=== PATIENT | female | born 1950 | race Caucasian/White ===

== ENCOUNTER → 2018-04-01 10:01 | Outpatient (CLI) | payer MEDICARE, OTHER, SELFPAY ==
[2018-04-01 11:08] LABS: Cholesterol 208 mg/dL (140-199); Glucose 98 mg/dL (80-110); HDL Cholesterol 49 mg/dL (40-60); LDL Cholesterol Calculated 136 mg/dL (<100); Triglycerides 113 mg/dL (35-150)
[2018-04-01 11:21] LABS: Vitamin D 25 Hydroxy (D3) 28.1 ng/mL (30.0-100.0)
[2018-04-01 11:22] LABS: Free T3, Triiodothyronine Free 5.22 pg/mL (2.77-5.27); Free T4, Direct Thyroxine 1.36 ng/dL (0.78-2.19)
[2018-04-01 11:35] LABS: Cancer Antigen 125 < 6 U/mL (0-35)
[2018-04-01 11:36] LABS: Thyroid Stimulating Hormone 2.12 uIU/mL (0.47-4.68)
== END ==
PROVIDERS: Family Provider Family Medicine; PCP Family Medicine; Visit Provider Family Medicine
DX: E03.9 Hypothyroidism, unspecified (principal); E78.5 Hyperlipidemia, unspecified; M85.80 Other specified disorders of bone density and structure, unspecified site; Z85.43 Personal history of malignant neoplasm of ovary
CPT/HCPCS: 36415; 80061; 82306; 82947; 84439; 84443; 84481; 86304

== ENCOUNTER → 2018-08-12 10:56 | Outpatient (CLI) | payer MEDICARE, OTHER, SELFPAY ==
--- NOTE | 2018-08-12 | DI.MG.S_ITS ---
BILATERAL DIGITAL SCREENING MAMMOGRAM 3D/2D WITH CAD: 08/12/2018 CLINICAL: Routine screening. Family history of breast cancer. Comparison is made to exams dated: 03/06/2017 mammogram - [facility], 07/02/2015 mammogram, and 03/18/2014 mammogram - [facility]. The tissue of both breasts is heterogeneously dense. This may lower the sensitivity of mammography. Current study was also evaluated with a Computer Aided Detection (CAD) system. No significant masses, calcifications, or other findings are seen in either breast. There has been no significant interval change. IMPRESSION: NEGATIVE There is no mammographic evidence of malignancy. A 1 year screening mammogram is recommended. This exam was interpreted at Station ID: [id number]. NOTE: For mammograms, a report in lay terms will be sent to the patient. Approximately 15% of breast malignancies will not be visualized mammographically. In the management of a palpable breast mass, a negative mammogram must not discourage biopsy of a clinically suspicious lesion. Electronically Signed By: Jerry scherer/evangelina:08/12/2018 12:04:55 letter sent: Normal Exam ACR BI-RADS Category 1: Negative 3341F
== END ==
PROVIDERS: Family Provider Family Medicine; PCP Family Medicine; Visit Provider Family Medicine
DX: Z12.31 Encounter for screening mammogram for malignant neoplasm of breast (principal); Z80.3 Family history of malignant neoplasm of breast
CPT/HCPCS: 77063; 77067

== ENCOUNTER → 2019-04-17 10:58 | Outpatient (CLI) | payer MEDICARE, OTHER, SELFPAY ==
[2019-04-17 12:13] LABS: Vitamin D 25 Hydroxy (D3) 33.1 ng/mL (30.0-100.0)
[2019-04-17 12:16] LABS: Free T3, Triiodothyronine Free 4.47 pg/mL (2.77-5.27); Free T4, Direct Thyroxine 1.07 ng/dL (0.78-2.19)
== END ==
PROVIDERS: Family Provider Family Medicine; PCP Family Medicine; Referring Provider Family Medicine; Visit Provider Family Medicine
DX: E03.9 Hypothyroidism, unspecified (principal); E55.9 Vitamin D deficiency, unspecified; M85.80 Other specified disorders of bone density and structure, unspecified site
CPT/HCPCS: 36415; 82306; 84439; 84443; 84481

== ENCOUNTER → 2021-09-15 07:41 | Outpatient (CLI) | payer MEDICARE, OTHER, SELFPAY ==
[2021-09-15 08:13] LABS: Cholesterol 220 mg/dL (140-199); Glucose 103 mg/dL (80-110); HDL Cholesterol 56 mg/dL (40-60); LDL Cholesterol Calculated 149 mg/dL (<100); Triglycerides 74 mg/dL (35-150)
[2021-09-15 08:43] LABS: Thyroid Stimulating Hormone 6.93 uIU/mL (0.47-4.68)
== END ==
PROVIDERS: Family Provider Family Medicine; PCP Family Medicine; Referring Provider Family Medicine; Visit Provider Family Medicine
DX: E78.5 Hyperlipidemia, unspecified (principal); E03.9 Hypothyroidism, unspecified
CPT/HCPCS: 36415; 80061; 82947; 84443

== ENCOUNTER → 2021-12-21 08:48 | Outpatient (CLI) | payer MEDICARE, OTHER, SELFPAY ==
[2021-12-21 10:46] LABS: TSH w/ Reflex to FT4 0.55 uIU/mL (0.47-4.68)
[2021-12-22 06:47] LABS: Triiodothyronine T3 Total 177 ng/dL (71-180)
== END ==
PROVIDERS: Family Provider Family Medicine; PCP Family Medicine; Referring Provider Family Medicine; Visit Provider Family Medicine
DX: E03.9 Hypothyroidism, unspecified (principal)
CPT/HCPCS: 36415; 84436; 84443; 84480

== ENCOUNTER → 2022-12-14 07:09 | Outpatient (CLI) | payer MEDICARE, OTHER, SELFPAY ==
[2022-12-14 08:01] LABS: Cholesterol 216 mg/dL (140-199); Glucose 98 mg/dL (80-110); HDL Cholesterol 58 mg/dL (40-60); LDL Cholesterol Calculated 140 mg/dL (<100); Triglycerides 90 mg/dL (35-150)
== END ==
PROVIDERS: Family Provider Family Medicine; PCP Family Medicine; Referring Provider Family Medicine; Visit Provider Family Medicine
DX: E78.5 Hyperlipidemia, unspecified (principal); E03.9 Hypothyroidism, unspecified; Z13.1 Encounter for screening for diabetes mellitus
CPT/HCPCS: 36415; 80061; 82947

== ENCOUNTER → 2022-12-21 09:32 | Outpatient (CLI) | payer MEDICARE, OTHER, SELFPAY ==
[2022-12-21 10:57] LABS: T4 Total Thyroxine 9.58 ug/dL (5.5-11.0)
[2022-12-22 08:17] LABS: Triiodothyronine T3 Total 174 ng/dL (71-180)
== END ==
PROVIDERS: Family Provider Family Medicine; PCP Family Medicine; Referring Provider Family Medicine; Visit Provider Family Medicine
DX: E03.9 Hypothyroidism, unspecified (principal)
CPT/HCPCS: 36415; 84436; 84439; 84443; 84480

== ENCOUNTER → 2022-12-27 15:03 | Outpatient (CLI) | payer MEDICARE, OTHER, SELFPAY ==
--- NOTE | 2022-12-27 | DI.MG.S_ITS ---
BILATERAL DIGITAL SCREENING MAMMOGRAM 3D/2D WITH CAD: 12/27/2022 CLINICAL: Routine screening. Family history of breast cancer. Comparison is made to exams dated: 08/12/2018 mammogram, 03/06/2017 mammogram - [facility], and 07/02/2015 mammogram - [facility]. Both breasts are heterogeneously dense, which may obscure small masses (category c / 51-75% glandular tissue). Current study was also evaluated with a Computer Aided Detection (CAD) system. There are benign calcifications in both breasts. No significant masses, calcifications, or other findings are seen in either breast. There has been no significant interval change. IMPRESSION: BENIGN There is no mammographic evidence of malignancy. A 1 year screening mammogram is recommended. Based on the Tyrer Cuzick model (a risk assessment model) the patient's lifetime risk is 16.1% and her 10 year risk is 10.4%. According to the ACR, ACS, and NCCN guidelines, an annual breast MRI exam along with mammogram is recommended if the patient's lifetime risk is 20% or greater. This exam was interpreted at Station ID: [id number]. NOTE: For mammograms, a report in lay terms will be sent to the patient. Approximately 15% of breast malignancies will not be visualized mammographically. In the management of a palpable breast mass, a negative mammogram must not discourage biopsy of a clinically suspicious lesion. Electronically Signed By: Ely norman/evangelina:12/28/2022 15:38:43 letter sent: Normal Exam ACR BI-RADS Category 2: Benign Finding(s) 3342F
== END ==
PROVIDERS: Family Provider Family Medicine; PCP Family Medicine; Referring Provider Family Medicine; Visit Provider Family Medicine
DX: Z12.31 Encounter for screening mammogram for malignant neoplasm of breast (principal); Z80.3 Family history of malignant neoplasm of breast
CPT/HCPCS: 77063; 77067

== ENCOUNTER → 2023-04-02 10:49 | Outpatient (CLI) | payer MEDICARE, OTHER, SELFPAY ==
[2023-04-02 13:06] LABS: TSH w/ Reflex to FT4 0.21 uIU/mL (0.47-4.68)
[2023-04-02 13:52] LABS: Free T4, Direct Thyroxine 1.22 ng/dL (0.78-2.19)
== END ==
PROVIDERS: Family Provider Family Medicine; PCP Family Medicine; Referring Provider Family Medicine; Visit Provider Family Medicine
DX: E03.9 Hypothyroidism, unspecified (principal)
CPT/HCPCS: 36415; 84439; 84443

== ENCOUNTER → 2024-01-01 08:07 | Outpatient (CLI) | payer MEDICARE, OTHER, SELFPAY ==
[2024-01-01 15:27] LABS: Free T4, Direct Thyroxine 1.19 ng/dL (0.78-2.19)
== END ==
PROVIDERS: Family Provider Family Medicine; PCP Family Medicine; Referring Provider Family Medicine; Visit Provider Family Medicine
DX: E03.9 Hypothyroidism, unspecified (principal)
CPT/HCPCS: 36415; 84439; 84443

== ENCOUNTER → 2024-03-21 09:42 | Outpatient (CLI) | payer MEDICARE, OTHER, SELFPAY ==
[2024-03-21 11:39] LABS: Thyroid Stimulating Hormone 4.77 uIU/mL (0.47-4.68)
[2024-03-23 11:11] LABS: Anti Thyroglobulin Antibody 2.1 IU/mL (0.0-0.9); Thyroid Peroxidase Antibodies 165 IU/mL (0-34)
== END ==
LOC: LAB 09:45
PROVIDERS: Family Provider Family Medicine; PCP Family Medicine; Referring Provider Family Medicine; Visit Provider Family Medicine
DX: E03.9 Hypothyroidism, unspecified (principal)
CPT/HCPCS: 36415; 84443; 86376; 86800

== ENCOUNTER → 2024-06-20 09:36 | Outpatient (CLI) | payer MEDICARE, OTHER, SELFPAY | PROVIDERS: Family Provider Family Medicine; PCP Family Medicine; Referring Provider Family Medicine; Visit Provider Family Medicine | DX: E03.9 Hypothyroidism, unspecified (principal) | CPT/HCPCS: 36415; 84443 ==

== ENCOUNTER → 2024-12-29 11:02 | Outpatient (CLI) | payer MEDICARE, OTHER, SELFPAY ==
[2024-12-29 12:14] LABS: Cholesterol 279 mg/dL (140-199); Glucose 102 mg/dL (70-99); HDL Cholesterol 73 mg/dL (40-60); Triglycerides 110 mg/dL (35-150)
[2024-12-29 12:46] LABS: Thyroid Stimulating Hormone 0.470 uIU/mL (0.47-4.68)
[2024-12-30 15:53] LABS: Hep C Virus Ab w/Reflex Quant NEGATIVE s/c (NEGATIVE)
== END ==
PROVIDERS: Family Provider Family Medicine; PCP Family Medicine; Referring Provider Family Medicine; Visit Provider Family Medicine
DX: Z13.220 Encounter for screening for lipoid disorders (principal); E03.9 Hypothyroidism, unspecified; Z13.9 Encounter for screening, unspecified
CPT/HCPCS: 36415; 80061; 82947; 84443; 86803